=== PATIENT | female | born 1990 | race African-American/Black ===

== ENCOUNTER 2017-09-10 22:21 | Emergency (ER) | payer SELFPAY ==
[~2017-09-10] VITALS: Ht 152.4 cm; Wt 122.0 kg
[~2017-09-10 22:21] MED LIST: ALBUTEROL SULF8.5 GM INH; NKM; PREDNISONE20 MG ORAL
--- NOTE | 2017-09-10 22:36 | Emergency Room Report ---
History of Present Illness General Chief Complaint: To Be Triaged Source: Patient Present Illness HPI 26YOF with 2-3 days right earache Associated with nasal congestion Afebrile No use of Qtips No DM history Allergies: Coded Allergies: No Known Allergies (Unverified , 01/17/16) Patient History Past Medical History: none Past Surgical History: none Pertinent Family History: none Social History: Denies: smoking, alcohol use, drug use Now: No Immunizations: UTD Reviewed Nursing Documentation: PMH: Agreed, PSxH: Agreed Nursing Documentation-PMH Hx Asthma: Yes Review of Systems All Other Systems: negative except mentioned in HPI Physical Exam Sp02 EP Interpretation: reviewed, normal General Appearance: normal inspection, well appearing, no apparent distress, alert, GCS 15, non-toxic, obese Head: normocephalic, atraumatic Eyes: bilateral eye PERRL, bilateral eye EOMI ENT: normal ENT inspection, hearing grossly normal, normal pharynx, no angioedema, normal voice, uvula midline, moist mucus membranes, other - Right TM injected/erythematous. No TM rupture or pus drainage. Neck: normal inspection, full range of motion, supple, thyroid normal, no meningismus, no bony tend Respiratory: normal inspection, lungs clear, normal breath sounds, no rhonchi, no respiratory distress, no retraction, no accessory muscle use, no wheezing, speaking full sentences Cardiovascular #1: regular rate, rhythm, no edema, no JVD, normal capillary refill Gastrointestinal: normal inspection, normal bowel sounds, non tender, soft, no mass, no peritonitis, non-distended, no guarding, no hernia, no pulsatile mass Genitourinary: no CVA tenderness Musculoskeletal: normal inspection, back normal, normal range of motion, no calf tenderness, pelvis stable, Nino's Sign negative Neurologic: normal inspection, alert, oriented x3, responsive, rubber stamp die inspector III-XII nml as tested, motor strength/tone normal, cerebellar normal, normal gait, speech normal Psychiatric: normal inspection, judgement/insight normal, mood/affect normal, no suicidal/homicidal ideation, no delusions Skin: normal inspection, normal color, no rash Lymphatic: normal inspection, no adenopathy Medical Decision Making Diagnostic Impression: Primary Impression: Earache, right ER Course Right earache, likely otitis media Not sick, septic appearing No mastoiditis Analgesia provided ER course: Patient has remained stable during ED stay. Disposition: Patient is to be discharged to home. Prescriptions given are amoxicillin, motrin, flonase Patient is instructed to follow up with their primary care doctor within 5 days. Strict return precautions discussed with patient such as fever, chills, worsening/severe pain, nausea, vomiting, which may indicate severe illness. Patient verbalizes understanding and agrees with plan. Please note that this Emergency Department Report was dictated using [employer]sole dyer technology software, occasionally this can lead to erroneous entry secondary to interpretation by the dictation equipment Status: improved Disposition: HOME, SELF-CARE Scripts Fluticasone Propionate (Flonase Allergy Relief) 9.9 Ml [place].susp 9.9 ML NS BID for 7 Days, #1 UNIT Prov: KAITY TAYLOR M.D. 09/10/17 Ibuprofen* (MOTRIN*) 600 Mg Tablet 600 MG ORAL THREE TIMES A DAY for earache, #30 TAB 0 Refills Prov: KAITY TAYLOR M.D. 09/10/17 Amoxicillin (AMOXICILLIN) 500 Mg Tablet 500 MG PO TID for 7 Days, #21 TAB Prov: KAITY TAYLOR M.D. 09/10/17 KAITY TAYLOR M.D. Sep 10, 2017 22:36
[2017-09-10] MEDS ORDERED: FLONASE ALLERG9.9 ML NS (22:37)
[2017-09-10] MEDS ORDERED: IBUPROFEN600 MG ORAL (22:37)
[2017-09-10] MEDS ORDERED: AMOXICILLIN500 M1 PO (22:37)
[2017-09-10 22:52] VITALS: BP 123/85
== END 2017-09-10 22:50 | disposition home or self-care (01) ==
LOC: EMR 22:42
DX: H92.01 Otalgia, right ear (principal); J45.909 Unspecified asthma, uncomplicated
CPT/HCPCS: 99284

== ENCOUNTER 2017-11-28 00:11 | Emergency (ER) | payer SELFPAY ==
[~2017-11-28] VITALS: Ht 157.5 cm; Wt 117.0 kg
[~2017-11-28 00:11] MED LIST changes: +AMOXICILLIN500 M1 PO; +FLONASE ALLERG9.9 ML NS; +IBUPROFEN600 MG ORAL
[2017-11-28] MEDS ORDERED: Ketorolac 30mg Inj IV ONE (00:45)
[2017-11-28 01:12] VITALS: BP 112/67
[2017-11-28 01:20] LABS: BASOPHILS % (AUTO) 0.7 % (0.0-2.0); EOSINOPHILS % (AUTO) 2.4 % (0.0-3.0); HEMATOCRIT 33.3 % (37.0-47.0); HEMOGLOBIN 9.5 G/DL (12.0-16.0); LYMPHOCYTES % (AUTO) 23.4 % (20.0-45.0); MEAN CORPUSCULAR VOLUME 60 FL (80-99); MONOCYTES % (AUTO) 8.4 % (1.0-10.0); NEUTROPHILS % (AUTO) 65.1 % (45.0-75.0); PLATELET COUNT 420 K/UL (150-450); RED BLOOD COUNT 5.56 M/UL (4.20-5.40); RED CELL DISTRIBUTION WIDTH 17.1 % (11.6-14.8); WHITE BLOOD COUNT 9.7 K/UL (4.8-10.8)
[2017-11-28 01:27] LABS: ANION GAP 8 mmol/L (5-15); BLOOD UREA NITROGEN 8 mg/dL (7-18); CALCIUM 9.7 MG/DL (8.5-10.1); CARBON DIOXIDE 28 MMOL/L (21-32); CHLORIDE 105 MMOL/L (98-107); CREATININE 0.7 MG/DL (0.55-1.30); POTASSIUM 3.9 MMOL/L (3.5-5.1); SODIUM 141 MMOL/L (136-145)
[2017-11-28 01:32] LABS: ALANINE AMINOTRANSFERASE 350 U/L (12-78); ALBUMIN 3.7 G/DL (3.4-5.0); ALBUMIN/GLOBULIN RATIO 0.7 (1.0-2.7); ALKALINE PHOSPHATASE 98 U/L (46-116); ASPARTATE AMINO TRANSFERASE 226 U/L (15-37); BILIRUBIN,TOTAL 0.2 MG/DL (0.2-1.0)
--- NOTE | 2017-11-28 02:08 | Emergency Room Report ---
History of Present Illness General Chief Complaint: Abdominal Pain Source: Patient Present Illness HPI Is a 27 year old female with history of asthma and sickle cell trait. She presents with chief point abdominal pain with nausea vomiting and diarrhea. Onset for week now. Vomiting is nonbloody nonbilious. Diarrhea is watery. No fever chills. Pain is 8 out of 10. Nothing made it better. Eating made it worse. Allergies: Coded Allergies: No Known Allergies (Unverified , 01/17/16) Patient History Past Medical History: see triage record, old chart reviewed Past Surgical History: none Pertinent Family History: none Social History: Denies: smoking Last Menstrual Period: last month Now: No Immunizations: other Reviewed Nursing Documentation: PMH: Agreed; PSxH: Agreed Nursing Documentation-PMH Hx Asthma: Yes Review of Systems Eye: Denies: eye pain, blurred vision ENT: Denies: ear pain, nose congestion, throat swelling Respiratory: Denies: cough, shortness of breath Cardiovascular: Denies: chest pain, palpitations Gastrointestinal: Reports: abdominal pain, diarrhea, nausea, vomiting Musculoskeletal: Denies: back pain, joint pain Skin: Denies: rash Neurological: Denies: headache, numbness Endocrine: Denies: increased thirst, increased urine Hematologic/Lymphatic: Denies: easy bruising All Other Systems: negative except mentioned in HPI Physical Exam Vital Signs Date Time Temp Pulse Resp B/P (MAP) Pulse Ox O2 Delivery O2 Flow Rate FiO2 11/28/17 00:16 98.8 82 18 112/67 98 Room Air 98.8 vitals normal Sp02 EP Interpretation: reviewed, normal General Appearance: well appearing, no apparent distress, alert Head: normocephalic, atraumatic Eyes: bilateral eye PERRL, bilateral eye EOMI ENT: hearing grossly normal, normal pharynx Neck: full range of motion, supple, no meningismus Respiratory: chest non-tender, lungs clear, normal breath sounds Cardiovascular #1: regular rate, rhythm, no murmur Gastrointestinal: no mass, no organomegaly, no bruit, non-distended, abnormal bowel sounds - hyperactive bowel sounds, tenderness - diffuse Musculoskeletal: back normal, gait/station normal, normal range of motion Psychiatric: mood/affect normal Skin: warm/dry Medical Decision Making Diagnostic Impression: Primary Impression: Abdominal pain Qualified Codes: R10.84 - Generalized abdominal pain Additional Impression: Nausea vomiting and diarrhea ER Course Patient with generalize abdominal pain with vomiting and diarrhea. Since his been ongoing for a week I will going put on antibiotics. No evidence of obstruction. No evidence of appendicitis. Lab Results Impression labs normal CT/MRI/US Diagnostic Results CT/MRI/US Diagnostic Results : Imaging Test Ordered: CT abdomen and pelvis Impression read by radiologist. Mild thickening of the large bowel Last Vital Signs Date Time Temp Pulse Resp B/P (MAP) Pulse Ox O2 Delivery O2 Flow Rate FiO2 11/28/17 01:12 98.0 18 112/67 98 Room Air 98.0 11/28/17 00:16 82 Status: improved Disposition: HOME, SELF-CARE Condition: Stable Scripts Ciprofloxacin Hcl* (CIPROFLOXACIN HCL*) 500 Mg Tablet 500 MG ORAL Q12H, #14 TAB 0 Refills Prov: WILLIAMS MEJIA M.D. 11/28/17 Diphenoxylate Hcl/Atropine (LOMOTIL TABLET) 1 Each Tablet 1 TAB ORAL TID, #21 TAB 0 Refills Prov: WILLIAMS MEJIA M.D. 11/28/17 Referrals: NOT CHOSEN [facility]/,REFERRING (PCP) Patient Instructions: Abdominal Pain, Adult Additional Instructions: Follow-up your doctor in 7 days. Return if symptom worsen. WILLIAMS MEJIA M.D. November 28, 2017 02:08
[2017-11-28 02:19] LABS: BILIRUBIN, URINE NEGATIVE (NEGATIVE); GLUCOSE, URINE (UA) NEGATIVE (NEGATIVE); KETONES,URINE 2+ (NEGATIVE); LEUKOCYTE ESTERASE ,URINE 1+ (NEGATIVE); NITRITE,URINE NEGATIVE (NEGATIVE); PH,URINE 6 (4.5-8.0); PROTEIN,URINE 1+ (NEGATIVE); UROBILINOGEN,URINE NORMAL MG/DL (0.0-1.0)
[2017-11-28 02:31] LABS: COLOR,URINE YELLOW
[2017-11-28 02:32] LABS: APPEARANCE,URINE SLIGHTLY CLOUDY
[2017-11-28 02:40] VITALS: BP 100/51
[2017-11-28 04:00] VITALS: BP 113/65
[2017-11-28] MEDS ORDERED: CIPROFLOXACIN500 M2 ORAL (04:14)
[2017-11-28] MEDS ORDERED: LOMOTIL TABLET1 EACH ORAL (04:14)
--- NOTE | 2017-11-28 09:48 | Diagnostic Imaging Report ---
Indication: Abdominal pain for 3 days Technique: Spiral acquisitions obtained through the abdomen and pelvis. No oral contrast utilized, per emergency room physician request No IV contrast utilized, per emergency room physician request.. Multiplanar reconstructions were generated. Total dose length product 967.23 mGycm. CTDIvol(s) 19.75 mGy. Dose reduction achieved using automated exposure control Comparison: None Findings: Normal appendix. No evidence of diverticulosis or diverticulitis. No small bowel distention. No free or loculated intraperitoneal air or fluid is evident. Distal esophagus, stomach, duodenum are unremarkable. Lack of IV contrast limits assessment of the solid organs. The liver, gallbladder, bile ducts, pancreas, spleen, adrenals, kidneys are all unremarkable. No retroperitoneal or mesenteric mass or adenopathy. No pelvic mass or adenopathy. Uterus and adnexal structures are unremarkable. The included lung bases are clear. The bones are unremarkable. Impression: Negative This agrees with the preliminary interpretation provided overnight by [facility] service. The CT scanner at [facility] is accredited by the [employer] and the scans are performed using protocols designed to limit radiation exposure to as low as reasonably achievable to attain images of sufficient resolution adequate for diagnostic evaluation.
== END 2017-11-28 04:00 | disposition home or self-care (01) ==
LOC: EMR 00:26
DX: R10.9 Unspecified abdominal pain (principal); R11.2 Nausea with vomiting, unspecified; R19.7 Diarrhea, unspecified; J45.909 Unspecified asthma, uncomplicated; D57.1 Sickle-cell disease without crisis
CPT/HCPCS: 36415; 74176; 80053; 81003; 81025; 83690; 84703; 85025; 96374; 96375; 99284; J1885; J2405